=== PATIENT | male | born 1950 | race Caucasian/White ===

== ENCOUNTER 2016-12-30 00:49 | Emergency (ER) | payer OTHER ==
[~2016-12-30] VITALS: Ht 182.9 cm; Wt 157.5 kg
[2016-12-30 01:03] VITALS: Ht 182.9 cm; Wt 157.5 kg
[2016-12-30] MEDS ORDERED: METF500T4 PO (02:40)
[2016-12-30] MEDS ORDERED: GLIP5TAB13 PO (02:40)
--- NOTE | 2016-12-30 02:41 | ERD ---
ER Documentation Chief Complaint Date/Time DATE: 12/30/16 TIME: 02:38 Chief Complaint Lt foot swelling x 1 week. Denies trauma HPI 66-year-old male presents here in emergency department for complaints of left lower leg swelling, more of left foot swelling that started one week ago. Patient denies any pain. Patient denies any numbness or tingling. Patient denies any fever or chills. Patient is diabetic. ROS All systems reviewed and are negative except as per history of present illness. Medications Home Meds Reported Medications Glipizide* (Glipizide*) Unknown Strength Tablet, PO DAILY, TAB 12/30/16 Metformin* (Glucophage*) Unknown Strength Tab, PO BID, #20 TAB 12/30/16 Allergies Allergies: Coded Allergies: Penicillins (Verified Allergy, Severe, rash, 12/30/16) PMhx/Soc Medical and Surgical Hx: pt denies Surgical Hx History of Surgery: No Anesthesia Reaction: No Hx Neurological Disorder: No Hx Respiratory Disorders: No Hx Cardiac Disorders: No Hx Psychiatric Problems: No Hx Miscellaneous Medical Probl: Yes (DM) Hx Alcohol Use: No Hx Substance Use: No Hx Tobacco Use: No Smoking Status: Never smoker FmHx Family History: No coronary disease, No diabetes, No other Physical Exam Vitals Vital Signs Date Time Temp Pulse Resp B/P Pulse Ox O2 Delivery O2 Flow Rate FiO2 12/30/16 01:03 97.6 80 18 150/78 97 Physical Exam GENERAL: The patient is well developed and appropriate for usual state of health, in no apparent distress. CHEST: Clear to auscultation bilaterally. There are no rales, wheezes or rhonchi. HEART: Regular rate and rhythm. No murmurs, clicks, rubs or gallops. No S3 or S4. ABDOMEN: Soft, nontender and nondistended. Good bowel sounds. No rebound or guarding. No gross peritonitis. No gross organomegaly or masses. No Sellers sign or McBurney point tenderness. BACK: No midline or flank tenderness. EXTREMITIES: Noted left foot swelling, no pitting edema, no hemorrhoids sign noted. Noted maceration of skin between the toes of the left foot.Equal pulses bilaterally. There is no peripheral clubbing, cyanosis or edema. No focal swelling or erythema. Full range of motion. Grossly neurovascularly intact. NEURO: Alert and oriented. Cranial nerves 2-12 intact. Motor strength in all 4 extremities with 5/5 strength. Sensation grossly intact. Normal speech and gait. SKIN: There is no apparent rash or petechia. The skin is warm and dry. HEMATOLOGIC AND LYMPHATIC: There is no evidence of excessive bruising or lymphedema. No gross cervical, axillary, or inguinal lymphadenopathy. Results 24 hrs PROCEDURE: Ultrasound examination of the left lower extremity with Doppler. CLINICAL INDICATION: Left leg pain and swelling. TECHNIQUE: Multiple sonographic images of the left lower extremity veins were performed with earl scale and color Doppler. COMPARISON: None. FINDINGS: The left common femoral, superficial femoral and popliteal veins demonstrate normal color flow, waveforms, compression and response to augmentation. There is no evidence of deep venous thrombosis. IMPRESSION: No evidence of deep venous thrombosis within the left lower extremity. .Ronald Dhaliwal MD, MD Date Time Electronically viewed and signed by .Ronald Dhaliwal MD, MD on 12/30/2016 03:35 .T/ CC: ROBBI AYALA [employer] Procedures/MDM Medical Decision Making: Patient's left foot swelling nonspecific at this time, can be signs of early cellulitis, pt has tinea pedis, fungal infection in between toes. Can be from venous insufficiency. No symptoms of any neurovascular compromise at this time. No DVT noted.There is no suspicion for neurovascular compromise. Patient has intact sensation and circulation of the affected extremity. There is low suspicion for septic arthritis. Patient does not have any fever. Disposition: Home. Patient is given prescription for clindamycin, clotrimazole1 % cream. Patient was advised to elevate the affected area and apply ice on affected area. Patient was advised that if symptoms are worse, numbness, tingling, high fever, unable to move joint, worsening symptoms, to return to emergency department immediately. Otherwise, patient is advised to follow up with the primary care doctor in 5-7 days for reevaluation of symptoms. Departure Diagnosis: Primary Impression: Foot swelling Additional Impression: Tinea pedis Laterality: left Qualified Code: B35.3 - Tinea pedis of left foot Condition: Stable Patient Instructions: Peripheral Edema, Unilateral Additional Instructions: Patient is given prescription for keflex, Bactrim, clotrimazole1% cream. Patient was advised to elevate the affected area and apply ice on affected area. Patient was advised that if symptoms are worse, numbness, tingling, high fever, unable to move joint, worsening symptoms, to return to emergency department immediately. Otherwise, patient is advised to follow up with the primary care doctor in 5-7 days for reevaluation of symptoms. ROBBI AYALA NP Dec 30, 2016 02:41
--- NOTE | 2016-12-30 03:35 | RADRPT ---
PROCEDURE: Ultrasound examination of the left lower extremity with Doppler. CLINICAL INDICATION: Left leg pain and swelling. TECHNIQUE: Multiple sonographic images of the left lower extremity veins were performed with earl scale and color Doppler. COMPARISON: None. FINDINGS: The left common femoral, superficial femoral and popliteal veins demonstrate normal color flow, wave forms, compression and response to augmentation. There is no evidence of deep venous thrombosis. IMPRESSION: No evidence of deep venous thrombosis within the left lower extremity. .Ronald Dhaliwal MD, MD Date Time Electronically viewed and signed by .Ronald Dhaliwal MD, MD on 12/30/2016 03:35 .T/
[2016-12-30] MEDS ORDERED: CLOT30CR24 TOP (04:04)
[2016-12-30] MEDS ORDERED: CLIN-73 PO (04:04)
[2016-12-30 04:30] VITALS: BP 148/77; PULSE 68; RESP 18; TEMP 98.3
== END 2016-12-30 04:32 | disposition home or self-care (01) ==
LOC: FTE 00:49
DX: R22.42 Localized swelling, mass and lump, left lower limb (principal); B35.3 Tinea pedis; E11.9 Type 2 diabetes mellitus without complications; Z79.84 Long term (current) use of oral hypoglycemic drugs
CPT/HCPCS: 93971